=== PATIENT | female | born 1940 | race Caucasian/White ===

== ENCOUNTER 2021-11-10 12:47 | Emergency (ER) | payer MEDICARE, OTHER ==
[~2021-11-10] VITALS: Ht 171.4 cm; Wt 103.9 kg
[~2021-11-10 12:47] MED LIST: [UNRECOGNIZED DRUG - REMARK]
[2021-11-10] MEDS ORDERED: Morphine 4mg Syringe 4 MG/ML INJ IV NR (13:45)
[2021-11-10] MEDS ORDERED: ONDANSETRON HCL INJ 2MG/ML 2ML 2 MG/ML VIAL IV NR (13:45)
[2021-11-10 14:41] LABS: BASOPHILS % 0.5 % (0.0-1.0); EOSINOPHILS # (AUTO) 0.2 (0.0-0.4); EOSINOPHILS % 2.5 % (0.0-6.0); HEMATOCRIT 42.9 % (34.2-44.1); HEMOGLOBIN 13.2 g/dL (12.0-16.0); LYMPHOCYTES # (AUTO) 1.2 (1.0-3.2); LYMPHOCYTES % 18.3 % (18.0-39.1); MEAN CORPUSCULAR HEMOGLOBIN 28.1 pg (28-32); MEAN CORPUSCULAR HGB CONC 30.8 g/dL (31-35); MEAN CORPUSCULAR VOLUME 91.3 fL (81-99); MONOCYTES # (AUTO) 0.5 (0.2-0.8); MONOCYTES % 7.5 % (4.4-11.3); NEUTROPHILS # (AUTO) 4.5 (2.1-6.9); NEUTROPHILS % 70.7 % (38.7-80.0); PLATELET COUNT 186 x10e3/uL (140-360); RED CELL DISTRIBUTION WIDTH 15.7 % (11.7-14.4)
[2021-11-10 14:47] LABS: BACTERIA,URINE FEW /HPF; CLARITY,URINE CLOUDY (CLEAR); COLOR,URINE YELLOW (YELLOW); KETONES,URINE NEGATIVE (NEGATIVE); LEUKOCYTE ESTERASE ,URINE NEGATIVE (NEGATIVE); NITRITE,URINE NEGATIVE (NEGATIVE); PROTEIN,URINE DIPSTICK 1+ (NEGATIVE); RBC,URINE 0-5 /HPF (0-5); URINE UROBILINOGEN 0.2 mg/dL (0.2 - 1); WBC,URINE (MAN) 0-5 /HPF (0-5)
[2021-11-10 15:01] LABS: ALBUMIN 3.9 g/dL (3.5-5.0); ANION GAP 15.2 mmol/L (8-16); CREATININE, SERUM 1.01 mg/dL (0.57-1.11); POTASSIUM 4.2 mmol/L (3.5-5.1)
[2021-11-10 15:08] LABS: MUCUS,URINE FEW (RARE)
[2021-11-10 15:09] LABS: EPITHELIAL CELLS,URINE MANY /LPF
[2021-11-10 15:10] LABS: RENAL EPITHELIAL CELLS,URINE FEW
[2021-11-10 15:11] LABS: OTHER CRYSTALS,URINE PRESENT
[2021-11-10] MEDS ORDERED: CYCLOBENZAPRINE10 MG PO (16:12)
[2021-11-10 16:34] VITALS: BP 159/83
== END 2021-11-10 16:36 | disposition home or self-care (01) ==
LOC: ER 14:09
DX: M54.9 Dorsalgia, unspecified (principal); M79.18 Myalgia, other site; R11.2 Nausea with vomiting, unspecified; F20.9 Schizophrenia, unspecified; G89.29 Other chronic pain
CPT/HCPCS: 36415; 74176; 80053; 81001; 85025; 99284; J2270; J2405